=== PATIENT | female | born 1940 | race Caucasian/White ===

== ENCOUNTER → 2017-12-01 07:27 | Outpatient (CLI) | payer MEDICARE, BC, SELFPAY ==
[2017-12-01 09:38] LABS: Alanine Aminotransferase 19 U/L (12-78); Albumin Level 3.5 gm/dL (3.4-5.0); Alkaline Phosphatase 76 U/L (46-116); Anion Gap 8.8 mEq/L (5-15); Aspartate Amino Transferase 13 U/L (15-37); Bilirubin,Total 0.4 mg/dL (0.2-1.0); Blood Urea Nitrogen 12 mg/dL (7-18); Calcium 8.6 mg/dL (8.5-10.1); Carbon Dioxide 31 mmol/L (21.0-32.0); Chloride 108 mmol/L (98-107); Chol/HDL Ratio 2.7 (1-3.5); Cholesterol 138 mg/dL (140-200); Creatinine,Serum 0.72 mg/dL (0.55-1.02); Estimated Glomerular Filt Rate 78 ml/min (>60); GFR (African American) 95 ML/MIN (>60); Globulin 3.5 gm/dl (1.3-3.2); Glucose 100 mg/dL (74-106); HDL Cholesterol 52 mg/dL (29-89); LDL Cholesterol 66 mg/dL (0-130); Potassium 3.8 mmoL/L (3.5-5.1); Sodium 144 mmol/L (136-145); Triglycerides 101 mg/dL (30-200); VLDL Cholesterol 20 mg/dL (0-40)
== END ==
PROVIDERS: PCP Family Medicine; Visit Provider Family Medicine
DX: E03.9 Hypothyroidism, unspecified (principal); E78.5 Hyperlipidemia, unspecified; M19.90 Unspecified osteoarthritis, unspecified site
CPT/HCPCS: 36415; 80053; 80061; 84443

== ENCOUNTER → 2018-08-28 08:21 | Outpatient (CLI) | payer MEDICARE, BC, SELFPAY ==
[2018-08-28 12:30] LABS: Alanine Aminotransferase 23 U/L (12-78); Albumin Level 3.6 gm/dL (3.4-5.0); Albumin/Globulin Ratio 1.1 (1.1-1.8); Alkaline Phosphatase 67 U/L (46-116); Anion Gap 15.3 mEq/L (5-15); Aspartate Amino Transferase 13 U/L (15-37); Bilirubin,Total 0.6 mg/dL (0.2-1.0); Blood Urea Nitrogen 14 mg/dL (7-18); Carbon Dioxide 27 mmol/L (21.0-32.0); Chloride 105 mmol/L (98-107); Chol/HDL Ratio 3.2 (1-3.5); Cholesterol 139 mg/dL (140-200); Creatinine,Serum 0.76 mg/dL (0.55-1.02); Estimated Glomerular Filt Rate 73 ml/min (>60); GFR (African American) 89 ML/MIN (>60); Globulin 3.4 gm/dl (1.3-3.2); Glucose 103 mg/dL (74-106); HDL Cholesterol 43 mg/dL (29-89); LDL Cholesterol 73 mg/dL (0-130); Potassium 4.3 mmoL/L (3.5-5.1); Sodium 143 mmol/L (136-145); Thyroid Stimulating Hormone 0.36 uIU/ml (0.358-3.740); Triglycerides 114 mg/dL (30-200); VLDL Cholesterol 23 mg/dL (0-40)
== END ==
PROVIDERS: Visit Provider Family Medicine
DX: E03.9 Hypothyroidism, unspecified (principal); E78.5 Hyperlipidemia, unspecified
CPT/HCPCS: 36415; 80053; 80061; 84443

== ENCOUNTER → 2020-01-20 12:38 | Outpatient (POV) | payer MEDICARE, BC, SELFPAY | PROVIDERS: Visit Provider Audiologist | DX: Z00.00 Encounter for general adult medical examination without abnormal findings (principal) ==

== ENCOUNTER → 2020-02-24 09:56 | Outpatient (POV) | payer MEDICARE, BC, SELFPAY | PROVIDERS: Visit Provider Audiologist | DX: Z00.00 Encounter for general adult medical examination without abnormal findings (principal) ==

== ENCOUNTER → 2020-11-22 08:05 | Outpatient (CLI) | payer MEDICARE, BC, SELFPAY ==
[2020-11-22 09:47] LABS: Alanine Aminotransferase 15 U/L (12-78); Albumin Level 4.1 g/dl (3.5-5.0); Albumin/Globulin Ratio 1.3 (1.1-1.8); Alkaline Phosphatase 66 U/L (38-126); Anion Gap 14.6 mEq/L (5-15); Aspartate Amino Transferase 24 U/L (14-36); Bilirubin,Total 0.5 mg/dl (0.2-1.3); Blood Urea Nitrogen 12 mg/dl (7-17); Calcium 9.4 mg/dl (8.4-10.2); Carbon Dioxide 32 mmol/L (22.0-30.0); Chloride 99 mmol/L (98-107); Chol/HDL Ratio 3.7 (1-3.5); Cholesterol 170 mg/dl (140-200); Estimated Glomerular Filt Rate 80 ml/min (>60); GFR (African American) 97 ML/MIN (>60); Globulin 3.1 g/dL (1.3-3.2); Glucose 94 mg/dl (74-100); HDL Cholesterol 46 mg/dl (40-60); Potassium 4.6 mmoL/L (3.5-5.1); Sodium 141 mmol/L (136-145); Total Protein,Serum 7.2 g/dl (6.3-8.2); Triglycerides 201 mg/dl (30-150); VLDL Cholesterol 40 mg/dL (0-40)
[2020-11-22 09:58] LABS: Direct LDL Cholesterol 80.97 mg/dL (100-129)
[2020-11-22 10:17] LABS: Thyroid Stimulating Hormone 4.21 uIU/mL (0.465-4.68)
== END ==
PROVIDERS: Visit Provider Family Medicine
DX: E03.9 Hypothyroidism, unspecified (principal); E78.5 Hyperlipidemia, unspecified; R53.83 Other fatigue
CPT/HCPCS: 36415; 80053; 80061; 84443

== ENCOUNTER → 2021-03-14 15:38 | Outpatient (CLI) | payer MEDICARE, BC, SELFPAY ==
[2021-03-14 16:54] LABS: Adenovirus,PCR Not Detected (NotDetected); Coronavirus 229E Not Detected (NotDetected); Coronavirus NL63 Not Detected (NotDetected); Coronavirus OC43 Not Detected (NotDetected); Coronovirus HKU1,PCR Not Detected (NotDetected); Human Metapneumovirus Not Detected (NotDetected); Influenza A, PCR Not Detected (NotDetected); Influenza AH1, 2009 Not Detected (NotDetected); Influenza AH1, PCR Not Detected (NotDetected); Influenza AH3,PCR Not Detected (NotDetected); Influenza B, PCR Not Detected (NotDetected); Parainfluenza 1, PCR Not Detected (NotDetected); Parainfluenza 2, PCR Not Detected (NotDetected); Parainfluenza 3, PCR Not Detected (NotDetected); Parainfluenza 4, PCR Not Detected (NotDetected); Respiratory Syncytial Virus Not Detected (NotDetected); Rhinovirus/Enterovirus Not Detected (NotDetected)
[2021-03-14 16:55] LABS: Bordetella Pertussis Not Detected (NotDetected); Chlamydophila Pneumoniae, PCR Not Detected (NotDetected); Coronavirus 19, PCR Not Detected (NotDetected); Mycoplasma Pneumoniae, PCR Not Detected (NotDetected)
[2021-03-14 17:17] LABS: Basophils # 0.1 K/mm3 (0-0.2); Basophils % 0.6 % (0.1-2.0); Eosinophils # 0.1 K/mm3 (0.0-0.4); Eosinophils % 0.9 % (0.1-12.0); Hematocrit 41.8 % (37.0-47.0); Hemoglobin 13.9 g/dL (12.2-16.2); Lymphocytes # 1.8 K/mm3 (0.7-4.5); Lymphocytes % 17.5 % (10-50); Mean Corpuscular HGB Conc 33.2 g/dL (31.8-35.4); Mean Corpuscular Hemoglobin 32.3 pg (27.0-31.2); Mean Corpuscular Volume 97.2 fl (81-99); Mean Platelet Volume 8.1 fl (7.4-10.4); Monocytes # 0.6 K/mm3 (0.1-1.0); Monocytes % 5.4 % (1.7-9.3); Neutrophils # 7.9 K/mm3 (1.8-7.8); Neutrophils % 75.5 % (37.0-80.0); Platelet Count 214 K/mm3 (142-424); White Blood Count 10.4 K/mm3 (4.8-10.8)
== END ==
PROVIDERS: PCP Family Medicine; Visit Provider Family Medicine
DX: Z20.822 Contact with and (suspected) exposure to COVID-19 (principal)
CPT/HCPCS: 36415; 85025; 87581; 87632; 87798; C9803; U0003; U0005

== ENCOUNTER → 2021-05-23 08:31 | Outpatient (CLI) | payer MEDICARE, BC, SELFPAY ==
[2021-05-23 09:59] LABS: Alanine Aminotransferase 22 U/L (12-78); Albumin Level 4.3 g/dl (3.5-5.0); Albumin/Globulin Ratio 1.5 (1.1-1.8); Alkaline Phosphatase 71 U/L (38-126); Anion Gap 11.6 mEq/L (5-15); Aspartate Amino Transferase 35 U/L (14-36); Bilirubin,Total 0.5 mg/dl (0.2-1.3); Blood Urea Nitrogen 14 mg/dl (7-17); Calcium 9.2 mg/dl (8.4-10.2); Carbon Dioxide 29 mmol/L (22.0-30.0); Chloride 104 mmol/L (98-107); Chol/HDL Ratio 4.2 (1-3.5); Cholesterol 183 mg/dl (140-200); Estimated Glomerular Filt Rate 95 ml/min (>60); GFR (African American) 116 ML/MIN (>60); Globulin 2.9 g/dL (1.3-3.2); Glucose 95 mg/dl (74-100); HDL Cholesterol 44 mg/dl (40-60); Potassium 4.6 mmoL/L (3.5-5.1); Sodium 140 mmol/L (136-145); Total Protein,Serum 7.2 g/dl (6.3-8.2); Triglycerides 244 mg/dl (30-150); VLDL Cholesterol 49 mg/dL (0-40)
[2021-05-23 10:29] LABS: Thyroid Stimulating Hormone 2.52 uIU/mL (0.465-4.68)
== END ==
PROVIDERS: Visit Provider Family Medicine
DX: E03.9 Hypothyroidism, unspecified (principal); E78.5 Hyperlipidemia, unspecified
CPT/HCPCS: 36415; 80053; 80061; 84443

== ENCOUNTER → 2021-11-13 08:16 | Outpatient (CLI) | payer MEDICARE, BC, SELFPAY ==
[2021-11-13 09:58] LABS: Alanine Aminotransferase 21 U/L (12-78); Albumin Level 4.1 g/dl (3.5-5.0); Albumin/Globulin Ratio 1.5 (1.1-1.8); Alkaline Phosphatase 88 U/L (38-126); Anion Gap 9.2 mEq/L (5-15); Aspartate Amino Transferase 28 U/L (14-36); Bilirubin,Total 0.4 mg/dl (0.2-1.3); Blood Urea Nitrogen 11 mg/dl (7-17); Calcium 9.5 mg/dl (8.4-10.2); Carbon Dioxide 33 mmol/L (22.0-30.0); Chloride 104 mmol/L (98-107); Chol/HDL Ratio 3.8 (1-3.5); Cholesterol 161 mg/dl (140-200); Estimated Glomerular Filt Rate 95 ml/min (>60); GFR (African American) 116 ML/MIN (>60); Globulin 2.8 g/dL (1.3-3.2); Glucose 102 mg/dl (74-100); HDL Cholesterol 42 mg/dl (40-60); Potassium 4.2 mmoL/L (3.5-5.1); Sodium 142 mmol/L (136-145); Total Protein,Serum 6.9 g/dl (6.3-8.2); Triglycerides 196 mg/dl (30-150); VLDL Cholesterol 39 mg/dL (0-40)
[2021-11-13 10:29] LABS: Thyroid Stimulating Hormone 2.67 uIU/mL (0.465-4.68)
[2021-11-15 15:33] LABS: Direct LDL Cholesterol 81 mg/dL (100-129)
== END ==
PROVIDERS: PCP Family Medicine; Visit Provider Family Medicine
DX: E03.9 Hypothyroidism, unspecified (principal); E78.5 Hyperlipidemia, unspecified
CPT/HCPCS: 36415; 80053; 80061; 84443

== ENCOUNTER → 2022-11-13 08:09 | Outpatient (CLI) | payer MEDICARE, BC, SELFPAY ==
[2022-11-13 08:35] LABS: Basophils % 0.6 % (0.1-2.0); Eosinophils # 0.2 K/mm3 (0.0-0.4); Eosinophils % 2.7 % (0.1-12.0); Hematocrit 43.7 % (37.0-47.0); Hemoglobin 14.7 g/dL (12.2-16.2); Lymphocytes # 2.3 K/mm3 (0.7-4.5); Lymphocytes % 35.1 % (10-50); Mean Corpuscular HGB Conc 33.7 g/dL (31.8-35.4); Mean Corpuscular Hemoglobin 31.7 pg (27.0-31.2); Mean Corpuscular Volume 94.1 fl (81-99); Monocytes # 0.4 K/mm3 (0.1-1.0); Neutrophils # 3.6 K/mm3 (1.8-7.8); Neutrophils % 55.6 % (37.0-80.0); Platelet Count 215 K/mm3 (142-424); Red Blood Count 4.65 M/mm3 (4.20-5.40); Red Cell Distribution Width 12.7 % (11.5-17.5); White Blood Count 6.4 K/mm3 (4.8-10.8)
[2022-11-13 09:11] LABS: Chloride 106 mmol/L (98-107)
[2022-11-13 09:12] LABS: Potassium 4.1 mmoL/L (3.5-5.1); Sodium 143 mmol/L (136-145)
[2022-11-13 09:14] LABS: Alanine Aminotransferase 25 U/L (12-78); Alkaline Phosphatase 86 U/L (38-126); Aspartate Amino Transferase 30 U/L (14-36); Bilirubin,Total 0.6 mg/dl (0.2-1.3); Blood Urea Nitrogen 11 mg/dl (7-17); Estimated Glomerular Filt Rate 80 ml/min (>60); GFR (African American) 96 ML/MIN (>60)
[2022-11-13 09:15] LABS: Albumin/Globulin Ratio 1.3 (1.1-1.8); Anion Gap 13.1 mEq/L (5-15); Calcium 9.7 mg/dl (8.4-10.2); Carbon Dioxide 28 mmol/L (22.0-30.0); Chol/HDL Ratio 3.8 (1-3.5); Cholesterol 173 mg/dl (140-200); Glucose 100 mg/dl (74-100); HDL Cholesterol 45 mg/dl (40-60); Triglycerides 216 mg/dl (30-150); VLDL Cholesterol 43 mg/dL (0-40)
[2022-11-13 09:26] LABS: Direct LDL Cholesterol 84.33 mg/dL (100-129)
[2022-11-13 09:45] LABS: Thyroid Stimulating Hormone 3.14 uIU/mL (0.465-4.68)
== END ==
PROVIDERS: PCP Family Medicine; Visit Provider Family Medicine
DX: E78.5 Hyperlipidemia, unspecified (principal); E03.9 Hypothyroidism, unspecified
CPT/HCPCS: 36415; 80053; 80061; 84443; 85025

== ENCOUNTER 2023-11-12 08:16 | Outpatient (CLI) | payer MEDICARE, BC, SELFPAY ==
[2023-11-12 08:45] LABS: Basophils # 0.1 K/mm3 (0-0.2); Basophils % 1.1 % (0.1-2.0); Eosinophils # 0.2 K/mm3 (0.0-0.4); Eosinophils % 2.8 % (0.1-12.0); Hematocrit 47.4 % (37.0-47.0); Lymphocytes # 2.3 K/mm3 (0.7-4.5); Lymphocytes % 33.2 % (10-50); Mean Corpuscular HGB Conc 31.6 g/dL (31.8-35.4); Mean Corpuscular Hemoglobin 31.5 pg (27.0-31.2); Mean Corpuscular Volume 99.7 fl (81-99); Mean Platelet Volume 8.2 fl (7.4-10.4); Monocytes # 0.4 K/mm3 (0.1-1.0); Monocytes % 5.6 % (1.7-9.3); Neutrophils % 57.3 % (37.0-80.0); Platelet Count 216 K/mm3 (142-424); Red Blood Count 4.76 M/mm3 (4.20-5.40); Red Cell Distribution Width 13.4 % (11.5-17.5); White Blood Count 6.9 K/mm3 (4.8-10.8)
[2023-11-12 11:28] LABS: Alanine Aminotransferase 24 U/L (12-78); Albumin Level 4.1 g/dl (3.5-5.0); Albumin/Globulin Ratio 1.3 (1.1-1.8); Alkaline Phosphatase 68 U/L (38-126); Anion Gap 12.7 mEq/L (5-15); Aspartate Amino Transferase 30 U/L (14-36); Bilirubin,Total 0.6 mg/dl (0.2-1.3); Blood Urea Nitrogen 10 mg/dl (7-17); Calcium 9.3 mg/dl (8.4-10.2); Carbon Dioxide 27 mmol/L (22.0-30.0); Chloride 106 mmol/L (98-107); Chol/HDL Ratio 3.8 (1-3.5); Cholesterol 178 mg/dl (140-200); Estimated Glomerular Filt Rate 80 ml/min (>60); GFR (African American) 96 ML/MIN (>60); Globulin 3.1 g/dL (1.3-3.2); Glucose 105 mg/dl (74-100); HDL Cholesterol 47 mg/dl (40-60); Potassium 4.7 mmoL/L (3.5-5.1); Sodium 141 mmol/L (136-145); Total Protein,Serum 7.2 g/dl (6.3-8.2); Triglycerides 206 mg/dl (30-150); VLDL Cholesterol 41 mg/dL (0-40)
== END 2023-11-12 23:59 | disposition home or self-care (01) ==
LOC: LAB 08:20
PROVIDERS: PCP Family Medicine; Visit Provider Family Medicine
DX: E03.9 Hypothyroidism, unspecified (principal); E78.5 Hyperlipidemia, unspecified
CPT/HCPCS: 36415; 80053; 80061; 84443; 85025

== ENCOUNTER 2024-11-08 08:13 | Outpatient (CLI) | payer MEDICARE, BC, SELFPAY ==
--- OUTSIDE RECORDS SUMMARY | 2024-11-08 08:21 | XMS_ITS ---
Author Organization Unknown Medications Date Medication Dosage DosageUnit StartDate StopDate StopReason Active DoseQuantity DoseUnit Dispense DispenseUnit Refills NdcCode DrugCode PharmacyId IsPrescription MappedMedication Srcstatus Custom 01/13 00:00 :00 Cyclobenzap rine HCl 5 MG Tablet 1 30 1 0009 3342 001 P Taking 11/17 00:00 :00 Cyclobenzap rine HCl 5 MG Tablet 1 30 1 0009 3342 001 P Unknown Status 11/17 00:00 :00 Cyclobenzap rine HCl 5 MG Tablet 0 0009 3342 001 P Not Taking 01/13 00:00 :00 Euthyrox 50 MCG Tablet 1 90 3 3545309 5 030 P Taking 11/17 00:00 :00 Euthyrox 50 MCG Tablet 1 90 3 [id number] 5 030 P Unknown Status 11/17 00:00 :00 Euthyrox 50 MCG Tablet 1 90 3 [id number] 5 030 P Taking 01/13 00:00 :00 Magnesium 250 MG Tablet 1 30 326354 00 251 Taking 11/17 00:00 :00 Magnesium 250 MG Tablet 1 30 [id number] 00 251 Taking 01/13 00:00 :00 Multiple Vitamin - Capsule 1 30 Taki ng 11/17 00:00 :00 Multiple Vitamin - Capsule 1 30 Taki ng 01/13 00:00 :00 Potassium 99 MG Tablet 1 30 [id number] 0 405 Taking 11/17 00:00 :00 Potassium 99 MG Tablet 1 30 4574471 0 405 Taking 01/13 00:00 :00 Simvastatin 10 MG Tablet 1 90 3 04203 050 905 P Taking 11/17 00:00 :00 Simvastatin 10 MG Tablet 1 90 3 07036 050 905 P Unknown Status 11/17 00:00 :00 Simvastatin 10 MG Tablet 1 90 3 92263 050 905 P Taking
--- OUTSIDE RECORDS SUMMARY | 2024-11-08 08:22 | XMS_ITS | Clinical Summary ---
[facility] Address [address] [place] [address] Care Team Providers Care Hose Sprayer Name Role Phone Mahamed Cook MD Primary Care Provider Allergies No known active allergies Medications acetaminophen (TYLENOL) 500 MG tablet Take 500 mg by mouth Every 6 (Six) Hours As Needed for Mild Pain . Active etodolac XL (LODINE XL) 400 MG 24 hr tablet Take 400 mg by mouth 2 (Two) Times a Day. Active levothyroxine (SYNTHROID, LEVOTHROID) 75 MCG tablet Take 75 mcg by mouth Daily. Active simvastatin (ZOCOR) 10 MG tablet Take 10 mg by mouth Every Night. Active gabapentin (NEURONTIN) 300 MG capsule Take 300 mg by mouth Every Night. Bottle states QID Active aspirin EC 325 MG EC tablet Take 1 tablet by mouth Daily. For 1 month 30 tablet 12/06/2016 Active docusate sodium 100 MG capsule Take 100 mg by mouth 2 (Two) Times a Day. 60 capsule 12/06/2016 Active Active Problems Problem Noted Date Diagnosed Date Acute blood loss anemia, mild, asymptomatic 11/22 Leukocytosis, mild, likely reactive 12/05/2016 Hypokalemia, replaced 12/05/2016 Osteonecrosis of right hip 12/04/2016 Status post total replacement of right hip 12/04 Hypothyroid 12/04/2016 HLD (hyperlipidemia) 12/04/2016 Prediabetes 12/04/2016 Social History Tobacco Use Types Packs/Day Years Used Date Smoking Tobacco: Never Smokeless Tobacco: Never Alcohol Use Standard Drinks/Week Comments No 0 (1 standard drink = 0.6 oz pur e alcohol) Abuse Screen Answer Date Recorded Unsafe at Home or Work/School Not on file Feels Threatened by Someone? Not on file 01/2023 Does Anyone Keep You from Co ntacting Others or Doint Things Outside the Home? Not on file 01/01/2023 Physical Sign of Abuse Present Not on file 1 Housing Stability Answer Date Recorded Current Living Arrangements Not on file 12/22 Potentially Unsafe Housing Conditions Not on [place] 01/01/2023 Family and Community Support Answer Gagan e Recorded Help with Day-to-Day Activities Not on file 01/01/2023 Lonely or Isolated Not on file 01/01/2023 Employment Answer Date Recorded Do you want help finding or keeping work or a venecia b? Not on file 01/01/2023 Disabilities Answer Date Recorded Concentrating, Remembering, or Making Decisions Difficulty Not on file 01/01/2023 Doing Errands Independently Difficulty Not on fi le 01/01/2023 Education Answer Date Recorded Help with school or training? Not on file Preferred Language Not on file 01/01/2023 Comments No Sex and Gender Information Value Date Recorded Sex Assigned at Not on file Legal Sex Female 11:19 AM EDT Gender Identity Not on file Sexual Orientation Not on file Last Filed Vital Signs Vital Sign Reading Time Taken Comments Blood Pressure 116/51 12/06/2016 8:00 AM EDT Pulse 79 12/06/2016 8:00 AM EDT Temperature 36.9 C (98.5 F) 12/06/2016 8:00 AM EDT Respiratory Rate 16 12/06/2016 8:00 AM EDT Oxygen Saturation 98% 12/06/2016 8:00 AM EDT Inhaled Oxygen Concentration - - Weight 57.2 kg (126 lb) 12/04/2016 8:19 AM EDT Height 157.5 cm (5' 2 ) 12/04/2016 8:19 AM EDT Body Mass Index 23.05 12/04/2016 8:19 AM EDT Plan of Treatment Health Maintenance Due Date Last Done Comments DXA SCAN 1940 LIPID PANEL 1940 TDAP/TD VACCINES (1 - Tdap) 1957 Pneumococcal Vaccine 50+ (1 of 1 - PCV) 01/24/1988 ZOSTER VACCINE (1 of 2) 01/24/1988 RSV Vaccine - Adults (1 - 1-dose 75+ series) 3 ANNUAL PHYSICAL 11/21/2016 COVID-19 Vaccine (1 - 2023- season) 2023 INFLUENZA VACCINE 12/22/2024 Medical Devices Implanted Type Area Chief Media Officer Device Identifier Shelf Expiration Date Model / Serial / Lot Cup Acet Pinn Sector W Griptn 52mm - [id number] Implanted:Qt y: 1 on 12/04/2016 by Jose Cook MD at [facility] Implant Right: Hip DEPUY 07/21/2026 [id number] / / Liner Acet Altrx Pinn Ntrl [id number] - [id number] Implanted:Qt y: 1 on 12/04/2016 by Jose Cook MD at [facility] Implant Right: Hip DEPUY 09/20/2021 [id number] / / Scrw Canc Pinn 6.5x20mm - [id number] Implanted:Qt y: 1 on 12/04/2016 by Jose Cook MD at [facility] Implant Right: Hip DEPUY 06/21/2026 [id number] / / Scrw Canc Pinn 6.5x20mm - [id number] Implanted:Qt y: 1 on 12/04/2016 by Jose Cook MD at [facility] Implant Right: Hip DEPUY 07/21/2026 [id number] / / Stem Fem Corail Cmtls W/Col Amt Sz10 - [id number] Implanted:Qt y: 1 on 12/04/2016 by Jose Cook MD at [facility] Implant Right: Hip DEPUY 05/21/2021 [id number] / / Hd Fem Ultamet/Art M/Cocr 03/06 36mm Pls1.5 - [id number] Implanted:Qt y: 1 on 12/04/2016 by Jose Cook MD at [facility] Implant Right: Hip DEPUY 07/21/2021 [id number] / / Totl Hip Gription Cup Depuy Upchrg - [id number] Implanted:Qt y: 1 on 12/04/2016 by Jose Cook MD at [facility] Implant Right: Hip DEPUY CAPHIPGRIPUPCHRG DEP / / Totl Hip Moa Depuy [id number] - [id number] Implanted:Qt y: 1 on 12/04/2016 by Jose Cook MD at [facility] Implant Right: Hip DEPUY CAPHIPTOTALDEP5 / / Totl Hip Stem Depuy Upchrg - [id number] Implanted:Qt y: 1 on 12/04/2016 by Jose Cook MD at [facility] Implant Right: Hip DEPUY CAPHIPSTEMUPCHRG DEP / / Insurance MEDICARE A & B [facility] Advance Directives Documents on File Type Date Recorded Patient Typing Secretary Expl anation LIVING WILL - SCAN 05/15/2021 7:51 AM ANTHONY NG WILL DIRECTIVE * Full Code (Latest Code Status on File) Date Activated Date Inactivated Comments 12/04/2016 2:49 PM 12/06/2016 3:13 PM Question Answer Comments Level Of Support Discussed With: Patient Care Teams Hose Sprayer Relationship Specialty Start Date End Date Mahamed Cook MD [address] [facility] [address] [facility] [address] [place] [address] PCP - General Family Medicine 11/21/16
[2024-11-08 09:23] LABS: Albumin Level 4.2 g/dl (3.5-5.0); Chloride 105 mmol/L (98-107); Potassium 4.1 mmoL/L (3.5-5.1); Sodium 141 mmol/L (136-145)
[2024-11-08 09:25] LABS: Alanine Aminotransferase 18 U/L (12-78); Anion Gap 11.1 mEq/L (5-15); Aspartate Amino Transferase 28 U/L (14-36); Blood Urea Nitrogen 12 mg/dl (7-17); Carbon Dioxide 29 mmol/L (22.0-30.0); Creatinine,Serum 0.70 mg/dl (0.52-1.04); Estimated Glomerular Filt Rate 79 ml/min (>60); GFR (African American) 96 ML/MIN (>60)
[2024-11-08 09:26] LABS: Albumin/Globulin Ratio 1.5 (1.1-1.8); Alkaline Phosphatase 78 U/L (38-126); Bilirubin,Total 0.6 mg/dl (0.2-1.3); Calcium 9.5 mg/dl (8.4-10.2); Cholesterol 158 mg/dl (140-200); Globulin 2.8 g/dL (1.3-3.2); Glucose 106 mg/dl (74-100); HDL Cholesterol 42 mg/dl (40-60); Total Protein,Serum 7.0 g/dl (6.3-8.2); Triglycerides 245 mg/dl (30-150)
[2024-11-08 09:55] LABS: Thyroid Stimulating Hormone 2.57 uIU/mL (0.465-4.68)
== END 2024-11-08 23:59 | disposition home or self-care (01) ==
LOC: LAB 08:15
PROVIDERS: PCP Family Medicine; Visit Provider Family Medicine
DX: E78.5 Hyperlipidemia, unspecified (principal); E03.9 Hypothyroidism, unspecified
CPT/HCPCS: 36415; 80053; 80061; 84443